=== PATIENT | female | born 1945 | race Caucasian/White ===

== ENCOUNTER 2017-01-29 22:44 | Inpatient (IN) | payer MEDICARE, OTHER ==
[2017-01-29] MEDS ORDERED: IPRATROPIUM/ALBUTEROL 0.5-2.5 MG/3 ML AMPUL NEB ONE (22:48)
[2017-01-29] MEDS ORDERED: MAGNESIUM SULFATE/D5W 100 ML IV SCH (23:00)
--- NOTE | 2017-01-29 23:09 | ER Document Report ---
ED General - General Stated Complaint: RESPIRATORY DISTRESS Notes: Patient is a 71-year-old female presents for complaint of difficulty breathing. She has a history of COPD. She quit smoking 5 months ago. She started having worsening difficulty breathing over last 4 days. Today became much worse. Her difficulty breathing was not responding to nebulizer treatments. She does not wear oxygen at home. She was 84% on room air when the paramedics arrived. She was placed on CPAP by the paramedics. She says the CPAP is helping. No recent fevers. TRAVEL OUTSIDE OF THE [place] IN LAST 30 DAYS: No - Related Data Allergies/Adverse Reactions: prednisone [Prednisone] Allergy (Intermediate, Verified 12/24/15 13:38) Past Medical History - Social History Smoking Status: Former Smoker Frequency of alcohol use: None Drug Abuse: None Family History: Reviewed & Not Pertinent - Past Medical History Cardiac Medical History: Reports: Hx Hypertension - CONTOLLED/MEDICATED Denies: Hx Heart Attack Pulmonary Medical History: Denies: Hx Asthma Neurological Medical History: Denies: Hx Cerebrovascular Accident, Hx Seizures GI Medical History: Denies: Hx Hepatitis, Hx Hiatal Hernia, Hx Ulcer Infectious Medical History: Denies: Hx Hepatitis Past Surgical History: Denies: Hx Hysterectomy, Hx Mastectomy, Hx Open Heart Surgery, Hx Pacemaker Review of Systems - Review of Systems Notes: My Normal Review Basic REVIEW OF SYSTEMS: CONSTITUTIONAL : Denies fever, chills, or sweats. Denies recent illness. EENT: Denies eye, ear, throat, or mouth pain or symptoms. Denies nasal or sinus congestion. RESPIRATORY: Difficulty breathing, cough, diffuse wheezing GASTROINTESTINAL: Denies abdominal pain. Denies nausea, vomiting, or diarrhea. Denies constipation. Last BM: GENITOURINARY: Denies difficulty urinating, painful urination, burning, frequency, or blood in urine. MUSCULOSKELETAL: Denies neck or back pain or joint pain or swelling. SKIN: Denies rash or skin lesions. NEUROLOGICAL: Denies altered mental status or loss of consciousness. Denies headache. Denies weakness or paralysis or loss of use of either side. Denies problems with gait or speech. Denies sensory or motor loss. ALL OTHER SYSTEMS REVIEWED AND NEGATIVE. Physical Exam - Vital signs Vitals: Resp Pulse Ox 24 H 96 01/30/17 01:10 01/30/17 01:10 - Notes Notes: General Appearance: Well nourished, alert, cooperative, moderate acute distress , no obvious discomfort. Vitals: reviewed, See vital signs table. Head: no swelling or tenderness to the head Eyes: PERRL, EOMI, Conjuctiva clear Mouth: No decreasd moisture Neck: Supple, no neck tenderness, No thyromegaly Lungs: Diffuse wheeze and rhonchi. No accessory muscle use, fair air exchange bilaterally. Heart: Normal rate, Regular rythm, No murmur, no rub Abdomen: Normal BS, soft, No rigidity, No abdominal tenderness, No guarding, no rebound, no abdominal masses, no organomegaly Extremities: strength 5/5 in all extremities, good pulses in all extremities, no swelling or tenderness in the extremities, no edema. Skin: warm, dry, appropriate color, no rash Neuro: speech clear, oriented x 3, normal affect, responds appropriately to questions. Course - Vital Signs Vital signs: Temp Pulse Resp BP Pulse Ox 24 H 96 01/30/17 01:10 01/30/17 01:10 - Laboratory Result Diagrams: 01/29/17 22:00 01/29/17 22:00 Laboratory results interpreted by me: 01/29/17 01/29/17 22:00 22:00 WBC 11.6 H Eosinophils % 11.1 H Absolute Eosinophils 1.3 H Sodium 136.9 L Chloride 97 L Glucose 146 H - EKG Interpretation by Me Additional EKG results interpreted by me: 01/29/17 23:10 EKG is reviewed and interpreted by me. EKG shows normal sinus rhythm with rate of [address] segment elevation or depression. No ischemic T wave inversions. AR interval, QRS duration, QTC intervals are within normal range. No old EKG available for comparison at this time. - Transfer of Care Notes: 01/30/17 01:35 Patient is continued feel improved on BiPAP however still has very tight and wheezy lung fowler. I did not give her Solu-Medrol due to her severe allergy to prednisone in the past. Prednisone calls her tongue no swelling or face is swollen causes difficulty breathing. She has received magnesium. She's received several DuoNeb treatments. She is currently receiving albuterol treatments. I spoke with the hospitalist who agrees in that the patient for further workup and treatment of her COPD exacerbation. Dictation of this chart was performed using voice recognition software; therefore, there may be some unintended grammatical errors. Discharge - Discharge Clinical Impression: COPD exacerbation Condition: Stable Disposition: ADMITTED INPATIENT Admitting Provider: Hospitalist Unit Admitted: [facility]
[2017-01-29 23:21] LABS: VENOUS BLOOD HCO3 28.1 mmol/L (20-32); VENOUS BLOOD PCO2 55.1 mmHg (35-63); VENOUS BLOOD PH 7.33 (7.30-7.42)
[2017-01-29 23:28] LABS: ABSOLUTE BASOPHILS # (AUTO) 0.1 10^3/uL (0.0-0.2); ABSOLUTE EOSINOPHILS # (AUTO) 1.3 10^3/uL (0.0-0.6); ABSOLUTE LYMPHOCYTES (AUTO) 2.2 10^3/uL (0.5-4.7); ABSOLUTE MONOCYTES (AUTO) 0.9 10^3/uL (0.1-1.4); ABSOLUTE NEUT (AUTO) 7.1 10^3/uL (1.7-8.2); EOSINOPHILS % (AUTO) 11.1 % (0-6); HEMATOCRIT 36.8 % (36.0-47.0); HEMOGLOBIN 12.5 g/dL (12.0-15.5); HGB HCT DIFFERENCE 0.7; LYMPHOCYTES % (AUTO) 19.4 % (13-45); MEAN CORPUSCULAR HEMOGLOBIN 30.6 pg (27.0-33.4); MEAN CORPUSCULAR VOLUME 90 fl (80-97); MONOCYTES % (AUTO) 7.4 % (3-13); RED BLOOD COUNT 4.09 10^6/uL (3.72-5.28); RED CELL DISTRIBUTION WIDTH 12.9 % (11.5-14.0); SEGMENTED NEUTROPHILS % (AUTO) 61.1 % (42-78); WHITE BLOOD COUNT 11.6 10^3/uL (4.0-10.5)
[2017-01-29 23:35] LABS: ANION GAP 12 (5-19); BLOOD UREA NITROGEN 14 mg/dL (7-20); CALCIUM 9.9 mg/dL (8.4-10.2); CARBON DIOXIDE 28 mmol/L (22-30); CHLORIDE 97 mmol/L (98-107); CREATININE RESULT 0.72 mg/dL (0.52-1.25); GLUCOSE 146 mg/dL (75-110); POTASSIUM 4.2 mmol/L (3.6-5.0); SODIUM 136.9 mmol/L (137-145)
[2017-01-30] MEDS ORDERED: IPRATROPIUM/ALBUTEROL 0.5-2.5 MG/3 ML AMPUL NEB ONE (00:41)
[2017-01-30] MEDS ORDERED: LORAZEPAM INJ 2 MG/1 ML VIAL IV ONE ×2 (00:55)
[2017-01-30] MEDS ORDERED: ALBUTEROL SULFATE 0.083% NEB 2.5 MG/3 ML AMPUL NEB ONE (01:34)
[2017-01-30 02:18] LABS: ADD ON TESTING BLD IN LAB ACKNOWLEDGE
[2017-01-30 02:24] LABS: VENOUS BLOOD BASE EXCESS -2.2 mmol/L; VENOUS BLOOD HCO3 24.8 mmol/L (20-32); VENOUS BLOOD PCO2 51.5 mmHg (35-63); VENOUS BLOOD PH 7.3 (7.30-7.42)
[2017-01-30 02:29] LABS: ALANINE AMINOTRANSFERASE 85 U/L (9-52); ALBUMIN 4.2 g/dL (3.5-5.0); ALKALINE PHOSPHATASE 131 U/L (38-126); ASPARTATE AMINO TRANSFERASE 45 U/L (14-36); BILIRUBIN,TOTAL 0.4 mg/dL (0.2-1.3); TOTAL PROTEIN 7.3 g/dL (6.3-8.2)
[2017-01-30] MEDS ORDERED: GUAIFENESIN SYRP 200 MG/10 ML UDC PO PRN (02:54)
[2017-01-30] MEDS ORDERED: NORMAL SALINE 1000 ML 1,000 ML IV PRN ×2 (02:54→21:30)
[2017-01-30] MEDS ORDERED: ALBUTEROL SULFATE 0.083% NEB 2.5 MG/3 ML AMPUL NEB PRN (02:54)
[2017-01-30] MEDS ORDERED: CEFTRIAXONE 1 GM/D5W RTU 1 GM/50 ML RTUPB IV SCH (03:00)
[2017-01-30] MEDS ORDERED: ACETAMINOPHEN 325 MG TABLET PO PRN (03:02)
[2017-01-30] MEDS ORDERED: AZITHROMYCIN INJ 500 MG VIAL IV PRN (03:28)
[2017-01-30 03:29] LABS: CREATINE KINASE MB 2.25 ng/mL (<4.55); TROPONIN I < 0.012 ng/mL
[2017-01-30] MEDS ORDERED: CEFTRIAXONE INJ 1000 MG VIAL IV PRN (03:29)
--- NOTE | 2017-01-30 03:34 | PDOC H&P ---
History of Present Illness Admission Date/PCP: 01/30/17 01:46 ELENA NIEVES MD Patient complains of: Difficulty breathing History of Present Illness: MICHELLE FIGUEROA is a 71 year old female with underlying nonhome O2 dependent COPD, having stopped smoking 5 months ago, along with hypertension, occasional problems with eczema, easy bruising, and mild arthritis who presents to the emergency room for evaluation of above complaint. Has had slowly worsening difficulty breathing over the last 4 days, but in particular over the last 24 hours or so. Home nebulizers had little effect. No home oxygen. 84% on room air upon EMS arrival. Placed on CPAP by paramedics , which has helped her significantly. Denies nausea vomiting, fever or chills. She is up-to-date with her flu vaccination. She and her take care of the 3-year-old granddaughter, who is currently on breathing treatments. Granddaughter attends daycare. Granddaughter does not have any chronic pulmonary problems. No hospitalization over the last 3 months, although did spend a single day in September at [facility] for breathing difficulty. No antibiotic use over the last 3 months. No history of intubation. Up-to-date with her flu vaccination. Patient has been discussed with emergency room physician who evaluated the patient. . Laboratory results are listed in [employer] and are reviewed. X-ray summary results are listed below, with full report(s) reviewed. . EKG reviewed. Social history/personal habits: . 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 No alcohol or illicit drug use. Allergies/adverse reactions are listed in [employer] and are reviewed. Prednisone actually causes significant worsening of her breathing, with facial and airway swelling. Home medications are reviewed by discussion with patient and are to be reconciled by nursing staff in [facility]. [facility] may not accurately reflect patient's true medications, dosages, and/or frequencies. Unfortunately, patient uncertain of medications/dosages/frequencies. REVIEW OF SYSTEMS: Constitutional: No fever or chills. Eyes: No vision complaints. ENT: No swallowing problems or complaints. No hearing problems or complaints. Pulmonary: See history and present illness. Cardiovascular: No current complaints, including chest pain. Gastrointestinal: No current complaints, including nausea or vomiting. Skin: Occasional problems with eczema. Hematologic: Easy bruising. Neurologic: No current complaints, including numbness or tingling. Musculoskeletal: Joint pain from arthritis. Psychiatric: No current complaints, including anxiety or depression. Endocrine: No current complaints, including polyuria. Genitourinary: No current complaints, including dysuria. PHYSICAL EXAMINATION: 5 feet 2 inches tall. 77.1 kg. BMI 31.1 kg/m. Blood pressure 120/96. 94% saturation on BiPAP 30%, 12/6. Pulse 110 and regular. Temperature not recorded on the chart. Slightly obese otherwise well-developed elderly female appearing perhaps slightly younger than her stated age. Pleasant awake alert and cooperative. Appears to feel a bit under the weather, so to speak, and perhaps slightly tired. Otherwise, pleasant awake alert and cooperative. Skin is warm and dry. No grossly obvious evidence of rash in areas of skin examined. No subcutaneous nodules palpated. ENT: Hearing grossly normal Mildly hard of hearing to normal conversation. Tongue midline on protrusion pink and slightly tacky. Exam slightly limited by BiPAP mask with attaching straps. Eyes: No scleral icterus. Pupils equal and reactive to light at 4 mm. [place] conjunctivae. Neck is supple and nontender to gentle active range of motion and palpation. Midline trachea. No palpable thyroid nodule mass enlargement or tenderness. Lymphatic: No palpable cervical or clavicular nodes. Neck and lymphatic exams limited by patient body habitus. Exam slightly limited by BiPAP mask with attaching straps. Psychiatric: Reasonable insight into acute and chronic medical issues. Oriented to time location and why here. Lungs: Auscultation reveals equal breath sounds bilaterally. No use of accessory respiratory muscles. Diffuse mild inspiratory and expiratory wheezing bilaterally. Cardiovascular: Heart regular rate and rhythm, without gallop murmur or rub. No abdominal aortic bruits. Difficult to evaluate for carotid bruits due to airway sounds from BiPAP device. No ankle or pedal edema. Faintly palpable dorsalis pedis pulses. Abdomen: soft, somewhat obese, Slightly distended nontender with positive bowel sounds. Unable to adequately evaluate abdomen for masses or organomegaly due to body habitus and distention. Extremities: Feet are warm and dry. No calf tenderness to compression. No grossly obvious visual evidence of calf swelling. Gentle manipulation of lower extremities fails to reveal any obvious evidence of injury or instability to knees hips or ankles. Neurologic: Moves upper extremities grossly normally. Patellar reflexes absent. Absent Babinski. Light touch is intact at feet. Dorsiflexion and plantarflexion of feet 5 / 5 and symmetric. Past Medical History Cardiac Medical History: Reports: Hypertension - CONTOLLED/MEDICATED Denies: Congestive Heart Failure, Coronary Artery Disease, DVT, Myocardial Infarction, Hyperlipidema, Pulmonary Embolism Pulmonary Medical History: Reports: Chronic Obstructive Pulmonary Disease (COPD) Denies: Asthma, Sleep Apnea EENT Medical History: Denies: Eyes, Ears, Throat Neurological Medical History: Denies: Hemorrhagic CVA, Ischemic CVA, Seizures Endocrine Medical History: Denies: Diabetes Mellitus Type 1, Diabetes Mellitus Type 2, Hyperthyroidism, Hypothyroidism Renal/ Medical History: Reports: None GI Medical History: Reports: Other - "Stomach trouble" could be no more specific than this. Denies: Cirrhosis, Hepatitis, Hiatal Hernia, Peptic Ulcer Disease Musculoskeltal Medical History: Reports: Arthritis Skin Medical History: Reports: Eczema Psychiatric Medical History: Denies: Alcohol Dependency, Depression, General Anxiety Disorder, Substance Abuse, Tobacco Dependency Hematology: Denies: Anemia, Sickle Cell Disease Infectious Medical History: Denies: Clostridium Difficile, Hepatitis B, Hepatitis C, Methicillin- Resistant Staph Aureus Past Surgical History Past Surgical History: Reports: Cholecystectomy, Other - Left foot surgery for Castrejon's neuroma. Cataract surgery. Social History Information Source: Patient, Emergency Med Personnel, [facility] Records Lives with: Spouse/Significant other Smoking Status: Former Smoker Frequency of Alcohol Use: None Drugs: None - Advance Directive Resuscitation Status: Full Code Surrogate healthcare decision maker:: Family History Family History: Reviewed & Not Pertinent Parental Family History Reviewed: Yes Children Family History Reviewed: Yes Sibling(s) Family History Reviewed.: Yes Medication/Allergy Home Medications: Albuterol Sulfate [Proair HFA] 2 puff IH Q4HP PRN 01/30/17 Diltiazem HCl [Cardizem] 120 mg PO Q12 01/30/17 Ipratropium/Albuterol Sulfate [Duoneb 3 ml Ampul] 3 ml NEB RTQ4 01/30/17 RX: Metoprolol Tartrate [Lopressor 50 mg Tablet] 50 mg PO Q12 01/30/17 Allergies/Adverse Reactions: prednisone [Prednisone] Allergy (Intermediate, Verified 01/30/17 20:09) Difficulty breathing Physical Exam Vital Signs: Temp Pulse Resp BP Pulse Ox 24 H 112/79 93 01/30/17 01:10 01/30/17 01:31 01/30/17 01:31 Intake & Output 01/29/17 01/30/17 01/31/17 00:59 00:59 00:59 Weight 77.111 kg Results Laboratory Results: 01/30/17 02:13 VBG pH 7.30 VBG pCO2 51.5 VBG HCO3 24.8 VBG Base Excess -2.2 Impressions: Chest X-Ray 01/29/17 22:48 IMPRESSION: No acute radiographic finding in the chest. Emphysema. Assessment & Plan - Diagnosis (1) Acute on chronic respiratory failure with hypoxia and hypercapnia Is this a current diagnosis for this admission?: YesPlan: Patient will be admitted under COPD exacerbation protocol. Incentive spirometry twice a day. Scheduled DuoNeb's. PRN albuterol nebs Antibiotics will consist of Rocephin and intravenous Zithromax.. I strongly encouraged patient to notify staff should patient feel that respiratory status is worsening. Patient is a full code. I have strongly encouraged patient not to get out of bed without notifying staff , , to avoid a fall with injury. Knee high SCDs for DVT prophylaxis, along with subcutaneous Lovenox Impression and plans were discussed with patient, who concurs. Time spent in evaluation and management of patient: 61 minutes. (2) COPD exacerbation Is this a current diagnosis for this admission?: Yes (3) Elevated LFTs Is this a current diagnosis for this admission?: YesPlan: No old labs available for comparison. Denies underlying biliary disease. Repeat chemistry. (4) HTN (hypertension) Qualifiers: Hypertension type: essential hypertension Qualified Code(s): I10 - Essential (primary) hypertension Is this a current diagnosis for this admission?: YesPlan: Resume home medications as appropriate once these have been determined and reviewed. - Inpatient Certification Based on my medical assessment, after consideration of the patient's comorbidities, presenting symptoms, or acuity I expect that the services needed warrant INPATIENT care.: Yes I certify that my determination is in accordance with my understanding of Medicare's requirements for reasonable and necessary INPATIENT services [42 CFR 412.3e].: Yes Medical Necessity: Need Close Monitoring Due to Risk of Patient Decompensation, Need For Continuous Telemetry Monitoring, Need for Nebulizer Therapy and Monitoring of Response, Need for IV Antibiotics, Risk of Complication if Not Cared For in Hospital, Risk of Diagnosis Which Will Require Inpatient Eval/Care/ Monitoring Post Hospital Care: D/C or Transfer Summary
[2017-01-30 07:25] LABS: ABSOLUTE BASOPHILS # (AUTO) 0.1 10^3/uL (0.0-0.2); ABSOLUTE EOSINOPHILS # (AUTO) 0.8 10^3/uL (0.0-0.6); ABSOLUTE LYMPHOCYTES (AUTO) 0.9 10^3/uL (0.5-4.7); ABSOLUTE MONOCYTES (AUTO) 0.7 10^3/uL (0.1-1.4); ABSOLUTE NEUT (AUTO) 9.4 10^3/uL (1.7-8.2); BASOPHILS % (AUTO) 0.8 % (0-2); EOSINOPHILS % (AUTO) 6.7 % (0-6); HEMATOCRIT 36.9 % (36.0-47.0); HEMOGLOBIN 12.5 g/dL (12.0-15.5); HGB HCT DIFFERENCE 0.6; LYMPHOCYTES % (AUTO) 7.8 % (13-45); MEAN CORPUSCULAR HEMOGLOBIN 30.4 pg (27.0-33.4); MEAN CORPUSCULAR HGB CONC 33.8 g/dL (32.0-36.0); MEAN CORPUSCULAR VOLUME 90 fl (80-97); MONOCYTES % (AUTO) 6.1 % (3-13); RED BLOOD COUNT 4.09 10^6/uL (3.72-5.28); SEGMENTED NEUTROPHILS % (AUTO) 78.6 % (42-78)
[2017-01-30] MEDS: ENOXAPARIN SODIUM INJ 40 MG/0.4 ML DISP.SYRIN SUBCUT SCH (07:28)
[2017-01-30 07:49] LABS: ALANINE AMINOTRANSFERASE 81 U/L (9-52); ALBUMIN 4.4 g/dL (3.5-5.0); ALKALINE PHOSPHATASE 124 U/L (38-126); ANION GAP 14 (5-19); ASPARTATE AMINO TRANSFERASE 42 U/L (14-36); BILIRUBIN,TOTAL 0.4 mg/dL (0.2-1.3); BLOOD UREA NITROGEN 16 mg/dL (7-20); CALCIUM 9.5 mg/dL (8.4-10.2); CARBON DIOXIDE 24 mmol/L (22-30); CHLORIDE 97 mmol/L (98-107); CREATININE RESULT 0.75 mg/dL (0.52-1.25); GLUCOSE 171 mg/dL (75-110); POTASSIUM 4.9 mmol/L (3.6-5.0); SODIUM 135.1 mmol/L (137-145); TOTAL PROTEIN 7.5 g/dL (6.3-8.2)
[2017-01-30 07:51] LABS: VENOUS BLOOD BASE EXCESS 2.9 mmol/L; VENOUS BLOOD HCO3 33.5 mmol/L (20-32); VENOUS BLOOD PH 7.22 (7.30-7.42)
[2017-01-30 07:53] LABS: VENOUS BLOOD PCO2 84.2 mmHg (35-63)
[2017-01-30] MEDS: IPRATROPIUM/ALBUTEROL 0.5-2.5 MG/3 ML AMPUL NEB SCH ×3 (08:34→20:59)
[2017-01-30] MEDS ORDERED: BUDESONIDE NEB 0.25 MG/2 ML AMPUL NEB SCH (09:45)
[2017-01-30] MEDS ORDERED: MORPHINE SULFATE 10 MG/ML INJ IV PRN (10:50)
--- NOTE | 2017-01-30 10:53 | EKG REPORT ---
SEVERITY:- NORMAL ECG - SINUS RHYTHM : Confirmed by: Rex Fritz 30-Jan-2017 10:52:33
[2017-01-30] MEDS: KETOROLAC TROMETHAMINE INJ/PF 30 MG/1 ML SDV IV PRN ×2 (11:19→17:55)
--- NOTE | 2017-01-30 12:00 | PDOC PROGRESS REPORT ---
Subjective Progress Note for:: 01/30/17 Subjective:: Reason for visit: Follow-up COPD exacerbation Hospital course: Per H&P "MICHELLE FIGUEROA is a 71 year old female with underlying nonhome O2 dependent COPD, having stopped smoking 5 months ago, along with hypertension, occasional problems with eczema, easy bruising, in mild arthritis who presents to the emergency room for evaluation of above complaint. Has had slowly worsening difficulty breathing over the last 4 days, but in particular over the last 24 hours or so. Home nebulizers had little effect. No home oxygen. 84% on room air upon EMS arrival. Placed on CPAP by paramedics, which has helped her significantly. Denies nausea vomiting, fever or chills. She is up-to-date with her flu vaccination. She and her do take care of the 3-year-old granddaughter, who is currently on breathing treatments. Granddaughter attends daycare. Granddaughter does not have any chronic pulmonary problems. No hospitalization over the last 3 months, although did spend a single day in September at [facility] for breathing difficulty. No anabiotic use over the last 3 months. No history of intubation. Up-to-date with her flu vaccination." She was admitted to a monitored bed and continued on BiPAP therapy with titration up to 16/8 pressure-support and resultant improvement in her respiratory status with decreased work of breathing. She remains alert and oriented. Subjective: She complains of pleuritic-type chest pain on deep breath that is diffuse across the lower ribs bilaterally. She continues to feel a tightness in her chest and is audibly wheezing. She denies nausea and vomiting, palpitations, headache, dizziness, numbness or tingling. ROS: per HPI plus a total of 10 systems reviewed, pertinent positives and negatives noted above, remaining systems negative. Physical Exam Vital Signs: Temp Pulse Resp BP Pulse Ox 97.6 F 119 H 20 134/92 H 998 H 01/30/17 07:36 01/30/17 08:34 01/30/17 08:34 01/30/17 07:36 01/30/17 08:34 Intake & Output 01/29/17 01/30/17 01/31/17 06:59 06:59 07:59 Intake Total 225 Output Total 0 Balance 225 Weight 79.2 kg EXAM GENERAL: NAD currently wearing BiPAP 16/8 FiO2 21%; well developed, well nourished; mild obese; alert and oriented to person, place, time, situation HEENT: normocephalic, atraumatic; no conjunctival injection, no scleral icterus ; oral mucosa moist; RESPIRATORY: no accessory muscle use, mild increased WOB, good air entry bilaterally; diffuse wheeze but no rales or rhonchi CARDIO: no JVD; RRR; no systolic murmur but difficult to auscultate with her lung sounds; mildtachycardia GI: soft; nondistended; normal bowel sounds; no hepato spleno megaly; no rebound, rigidity, guarding;' nontender VASCULAR: no abdominal bruit; no pallor; 2+ radial, DP pulse; normal capillary refill EXTREMITIES: no calf tender; no palpable cords in calf; no clubbing, cyanosis , pedal edema PSYCH: normal affect, normal mood SKIN: warm; moist; no petechiae; no telengectasias; no jaundice; no rash Results Laboratory Results: 01/30/17 06:39 01/30/17 06:39 01/30/17 01/30/17 01/30/17 06:39 06:39 07:43 WBC 12.0 H RBC 4.09 Hgb 12.5 Hct 36.9 MCV 90 MCH 30.4 MCHC 33.8 RDW 13.0 Plt Count 368 Seg Neutrophils % 78.6 H Lymphocytes % 7.8 L Monocytes % 6.1 Eosinophils % 6.7 H Basophils % 0.8 Absolute Neutrophils 9.4 H Absolute Lymphocytes 0.9 Absolute Monocytes 0.7 Absolute Eosinophils 0.8 H Absolute Basophils 0.1 VBG pH 7.22 L VBG pCO2 84.2 H* VBG HCO3 33.5 H VBG Base Excess 2.9 Sodium 135.1 L Potassium 4.9 Chloride 97 L Carbon Dioxide 24 Anion Gap 14 BUN 16 Creatinine 0.75 Est GFR ( Amer) > 60 Est GFR (Non-Af Amer) > 60 Glucose 171 H Calcium 9.5 Total Bilirubin 0.4 AST 42 H ALT 81 H Alkaline Phosphatase 124 Total Protein 7.5 Albumin 4.4 Impressions: Chest X-Ray 01/29/17 22:48 IMPRESSION: No acute radiographic finding in the chest. Emphysema. Assessment & Plan - Diagnosis (1) Acute on chronic respiratory failure with hypoxia and hypercapnia Is this a current diagnosis for this admission?: YesPlan: Continue BiPAP therapy and wean as tolerated. Continue supplemental oxygen. (2) COPD exacerbation Is this a current diagnosis for this admission?: YesPlan: Patient is an adverse reaction to systemic steroids but tolerates inhaled steroids, we will add budesonide nebs. Continue supplemental O2, nebulized therapy. (3) Elevated LFTs Is this a current diagnosis for this admission?: YesPlan: Unclear etiology, we'll continue to follow for now. 3 mild elevation. (4) HTN (hypertension) Qualifiers: Hypertension type: essential hypertension Qualified Code(s): I10 - Essential (primary) hypertension Is this a current diagnosis for this admission?: Yes - Time Time Spent with patient: 15-24 minutes Medications reviewed and adjusted accordingly: Yes Anticipated discharge: Home Within: within 72 hours
[2017-01-30 15:40] LABS: APPEARANCE,URINE CLEAR; BILIRUBIN,URINE NEGATIVE (NEGATIVE); GLUCOSE, URINE NEGATIVE (NEGATIVE); KETONES,URINE NEGATIVE (NEGATIVE); LEUKOCYTE ESTERASE,URINE NEGATIVE (NEGATIVE); NITRITE,URINE NEGATIVE (NEGATIVE); PROTEIN,URINE 100 mg/dL (NEGATIVE); URINE SPECIFIC GRAVITY 1.015; UROBILINOGEN,URINE NEGATIVE mg/dL (<2.0)
[2017-01-30] MEDS ORDERED: BUDESONIDE/FORMOTEROL 160-4.5 MCG 60 PUFF/6 GM MDI IH ONE (21:12)
[2017-01-30 21:13] LABS: VENOUS BLOOD BASE EXCESS 0.6 mmol/L; VENOUS BLOOD HCO3 27.5 mmol/L (20-32); VENOUS BLOOD PCO2 53.8 mmHg (35-63); VENOUS BLOOD PH 7.33 (7.30-7.42)
[2017-01-30] MEDS: BUDESONIDE/FORMOTEROL 160-4.5 MCG 60 PUFF/6 GM MDI IH SCH (21:30)
[2017-01-30] MEDS: CEFTRIAXONE 1 GM/D5W RTU 1 GM/50 ML RTUPB IV SCH (21:30)
[2017-01-30] MEDS: AZITHROMYCIN 500 MG in DEXTROSE 5%-WATER 250 ML IV SCH (22:44)
[2017-01-31 06:58] LABS: VENOUS BLOOD BASE EXCESS 2.1 mmol/L; VENOUS BLOOD HCO3 28.7 mmol/L (20-32); VENOUS BLOOD PCO2 53.5 mmHg (35-63); VENOUS BLOOD PH 7.35 (7.30-7.42)
[2017-01-31] MEDS: IPRATROPIUM/ALBUTEROL 0.5-2.5 MG/3 ML AMPUL NEB SCH (08:25)
[2017-01-31] MEDS: BUDESONIDE/FORMOTEROL 160-4.5 MCG 60 PUFF/6 GM MDI IH SCH ×2 (09:11→22:35)
[2017-01-31] MEDS: ENOXAPARIN SODIUM INJ 40 MG/0.4 ML DISP.SYRIN SUBCUT SCH (09:13)
[2017-01-31] MEDS ORDERED: (PENDING PHARMACY ID) (Diltiazem Hcl [Cardizem] 120 MG) PO SCH (10:00)
[2017-01-31] MEDS ORDERED: ALBUTEROL SULFATE 0.083% NEB 2.5 MG/3 ML AMPUL NEB PRN (11:45)
[2017-01-31] MEDS ORDERED: MORPHINE SULFATE 10 MG/ML INJ IV PRN (11:46)
[2017-01-31] MEDS ORDERED: METOPROLOL TARTRATE 50 MG TABLET PO ONE (12:00)
[2017-01-31] MEDS ORDERED: DILTIAZEM HCL 120 MG CAP.SR.24H PO ONE (12:00)
--- NOTE | 2017-01-31 12:07 | PDOC PROGRESS REPORT ---
Subjective Progress Note for:: 01/31/17 Subjective:: Reason for visit: Follow-up COPD exacerbation Hospital course: Per H&P "MICHELLE FIGUEROA is a 71 year old female with underlying nonhome O2 dependent COPD, having stopped smoking 5 months ago, along with hypertension, occasional problems with eczema, easy bruising, in mild arthritis who presents to the emergency room for evaluation of above complaint. Has had slowly worsening difficulty breathing over the last 4 days, but in particular over the last 24 hours or so. Home nebulizers had little effect. No home oxygen. 84% on room air upon EMS arrival. Placed on CPAP by paramedics, which has helped her significantly. Denies nausea vomiting, fever or chills. She is up-to-date with her flu vaccination. She and her do take care of the 3-year-old granddaughter, who is currently on breathing treatments. Granddaughter attends daycare. Granddaughter does not have any chronic pulmonary problems. No hospitalization over the last 3 months, although did spend a single day in September at [facility] for breathing difficulty. No anabiotic use over the last 3 months. No history of intubation. Up-to-date with her flu vaccination." She was admitted to a monitored bed and continued on BiPAP therapy with titration up to 16/8 pressure-support and resultant improvement in her respiratory status with decreased work of breathing but only while on BiPAP otherwise she quickly fatigues. She remains alert and oriented. Subjective: She complains of pleuritic-type chest pain on deep breath that is diffuse across the lower ribs bilaterally but seems to localize to the Rt lower ribs. She continues to feel a tightness in her chest "like I can't get enough air in!" and is audibly wheezing. She denies nausea and vomiting, palpitations , headache, dizziness, numbness or tingling. she reports taking an oral steroid in the past that started with a "d" and had no reaction; also takes cortisone shot into joints without reaction. ROS: per HPI plus a total of 10 systems reviewed, pertinent positives and negatives noted above, remaining systems negative. Physical Exam Vital Signs: Temp Pulse Resp BP Pulse Ox 97.7 F 95 18 131/83 H 99 01/31/17 07:38 01/31/17 08:25 01/31/17 08:25 01/31/17 07:38 01/31/17 08:25 Intake & Output 01/30/17 01/31/17 02/01/17 05:59 06:59 06:59 Intake Total Output Total Balance Weight EXAM GENERAL: NAD currently wearing BiPAP 07/07; well developed, well nourished; mild obese; alert and oriented to person, place, time, situation HEENT: normocephalic, atraumatic; no conjunctival injection, no scleral icterus ; oral mucosa moist; RESPIRATORY: no accessory muscle use, mild increased WOB, poor air entry bilaterally with tight bronchospasm indicated by diffuse wheeze and little air movement, opening squeaks and pops diffusely CARDIO: no JVD; no systolic murmur ; mild tachycardia GI: soft; nondistended; normal bowel sounds; no hepato spleno megaly; no rebound, rigidity, guarding;' nontender VASCULAR: no abdominal bruit; no pallor; 2+ radial, DP pulse; normal capillary refill EXTREMITIES: no calf tender; no palpable cords in calf; no clubbing, cyanosis , pedal edema PSYCH: normal affect, normal mood SKIN: warm; moist; no petechiae; no telengectasias; no jaundice; no rash Results Laboratory Results: 01/30/17 01/30/17 01/31/17 15:08 20:40 06:49 VBG pH 7.33 7.35 VBG pCO2 53.8 53.5 VBG HCO3 27.5 28.7 VBG Base Excess 0.6 2.1 Urine Color YELLOW Urine Appearance CLEAR Urine pH 5.0 Ur Specific Gilbert 1.015 Urine Protein 100 H Urine Glucose (UA) NEGATIVE Urine Ketones NEGATIVE Urine Blood NEGATIVE Urine Nitrite NEGATIVE Ur Leukocyte Esterase NEGATIVE Urine WBC (Auto) 1 Urine RBC (Auto) 1 Assessment & Plan - Diagnosis (1) Acute on chronic respiratory failure with hypoxia and hypercapnia Is this a current diagnosis for this admission?: YesPlan: severe and no better. will make following changes: d/c duonebs and add spiriva ; schedule albuterol nebs q6 with breakthrough nebs q3 prn; IV mag sulfate 3gms ; trial of IV decadron and monitor for reaction; use morphine for bronchial smooth muscle relaxation. otherwise Continue BiPAP therapy and wean as tolerated. Continue supplemental oxygen. (2) COPD exacerbation Is this a current diagnosis for this admission?: YesPlan: continue budesonide nebs. Continue supplemental O2, nebulized therapy as above. (3) Elevated LFTs Is this a current diagnosis for this admission?: YesPlan: Unclear etiology, we'll continue to follow for now. (4) HTN (hypertension) Qualifiers: Hypertension type: essential hypertension Qualified Code(s): I10 - Essential (primary) hypertension Is this a current diagnosis for this admission?: YesPlan: resume home regimen (5) Chest wall pain Is this a current diagnosis for this admission?: YesPlan: possible pleurisy, PE, fractured rib, effusion, etc - will ck CTA chest - Time Time Spent with patient: 35 or more minutes Medications reviewed and adjusted accordingly: Yes
[2017-01-31] MEDS ORDERED: DEXAMETHASONE SOD PHOS INJ 10 MG/1 ML VIAL IV ONE (13:00)
[2017-01-31] MEDS: MAGNESIUM SULFATE/D5W 1 GM/100 ML RTUPB IV SCH ×3 (13:30→16:47)
[2017-01-31] MEDS ORDERED: TIOTROPIUM BROMIDE DPI 5 CAP/KIT (18 MCG/CAP) IH SCH (14:00)
[2017-01-31] MEDS: ALBUTEROL SULFATE 0.083% NEB 2.5 MG/3 ML AMPUL NEB SCH ×2 (14:36→20:26)
[2017-01-31] MEDS ORDERED: ASPIRIN 81 MG TABLET, CHEWABLE PO ONE (16:00)
[2017-01-31] MEDS ORDERED: NITROGLYCERIN 5 MG (0.2 MG/HR) PATCH.TD24 TD ONE (17:18)
[2017-01-31] MEDS: ENOXAPARIN SODIUM INJ 80 MG/0.8 ML DISP.SYRIN SUBCUT SCH (17:21)
[2017-01-31] MEDS ORDERED: ATORVASTATIN CALCIUM 80 MG TABLET PO ONE (18:44)
--- NOTE | 2017-01-31 18:53 | PDOC TRANSFER SUMMARY ---
General Admission Date/PCP: 01/30/17 02:54 ELENA NIEVES MD Transfer Date: 01/31/17 Accepting Facility: [facility] Accepting Physician: dr lima, accepting hospitalist Resuscitation Status: Full Code - Transfer Diagnosis (1) NSTEMI (non-ST elevated myocardial infarction) Is this a current diagnosis for this admission?: YesDiagnosis Summary: Patient is not having active cardiac chest pain, she is having chest wall pain from coughing and breathlessness on presentation is completely reproducible under her right breast. Her initial EKG and troponin were both normal however today she was noted to have T-wave inversions on monitoring and a stat EKG shows T-wave inversions in the inferior and lateral leads and now her troponin is positive at 1.7. Cardiology was consulted and will continue to help manage while she is here. However she is at risk for an evolving infarct as I believe the COPD exacerbation as her stress test and demonstrates heretofore unknown coronary artery disease. She will be placed empirically on high-dose statin, full dose Lovenox, aspirin 324 mg daily, transdermal nitroglycerin and is already on a beta feliberto and calcium channel feliberto at home. (2) Acute on chronic respiratory failure with hypoxia and hypercapnia Is this a current diagnosis for this admission?: YesDiagnosis Summary: Her hypoxia has been mild since admission with an FiO2 requirement never greater than 25%, however her hypercapnia quickly becomes disabling leading to tachypnea and respiratory fatigue further exacerbating her respiratory status requiring frequent BiPAP intervention. She was started on Decadron today and has tolerated that dose without complication in spite of an intolerance to prednisone. She has been on inhaled budesonide, albuterol nebulizers, Spiriva with little improvement since admission. She'll be transported on BiPAP. (3) COPD exacerbation Is this a current diagnosis for this admission?: YesDiagnosis Summary: As noted above. She is also on empiric azithromycin and Rocephin due to productive cough at presentation and presumed bacterial bronchitis. (4) Elevated LFTs Is this a current diagnosis for this admission?: YesDiagnosis Summary: Unclear etiology. Very mild elevation of her AST and ALT. (5) HTN (hypertension) Is this a current diagnosis for this admission?: Yes (6) Chest wall pain Is this a current diagnosis for this admission?: YesDiagnosis Summary: She has right-sided chest wall pain probably musculoskeletal from paroxysms of cough on the day prior to her presentation and persistent increased work of breathing since her arrival. Chest x-ray does not show an obvious rib fracture. Her pain remains completely reproducible on exam and resides under her right breast in the anterior axillary line. - Transfer Medications Home Medications: Albuterol Sulfate [Proair HFA] 2 puff IH Q4HP PRN 01/30/17 Diltiazem HCl [Cardizem] 120 mg PO Q12 01/30/17 Ipratropium/Albuterol Sulfate [Duoneb 3 ml Ampul] 3 ml NEB RTQ4 01/30/17 Metoprolol Tartrate [Lopressor 50 mg Tablet] 50 mg PO Q12 01/30/17 Transfer Medications: Current Medications Acetaminophen (Tylenol 325 Mg Tablet) 650 mg PO Q8HP PRN PRN Reason: FOR PAIN OR TEMP Stop: 03/01/17 03:01 Last Admin: 01/30/17 08:00 Dose: 650 mg Albuterol (Ventolin 0.083% Neb 2.5 Mg/3 Ml Ampul) 2.5 mg NEB RTQ3HP PRN PRN Reason: SHORTNESS OF BREATH Stop: 03/02/17 11:43 Albuterol (Ventolin 0.083% Neb 2.5 Mg/3 Ml Ampul) 2.5 mg NEB [id number] LEIGH Stop: 03/02/17 13:59 Last Admin: 01/31/17 14:36 Dose: 2.5 mg Budesonide/Formoterol Fumarate (Symbicort Hfa 160-4.5 Mcg Inhaler 6 Gm) 2 puff IH Q12 LEIGH Stop: 03/01/17 21:59 Last Admin: 01/31/17 09:11 Dose: 2 puff Diltiazem HCl (Cardizem Cd 120 Mg Capsule) 120 mg PO Q12 LEIGH Stop: 03/02/17 21:59 Enoxaparin Sodium (Lovenox Inj 80 Mg/0.8 Ml Disp.Syrin) 80 mg SUBCUT Q12A LEIGH Stop: 03/02/17 17:59 Last Admin: 01/31/17 17:21 Dose: 80 mg Guaifenesin (Robitussin Syrup 200 Mg/10 Ml Ud Cup) 200 mg PO Q4HP PRN PRN Reason: COUGH Stop: 03/01/17 02:53 Last Admin: 01/30/17 08:00 Dose: 200 mg Azithromycin 500 mg/ Dextrose 250 mls @ 250 mls/hr IV QHS [facility] Stop: 02/06/17 03:59 Last Admin: 01/30/17 22:44 Dose: 500 mg Ceftriaxone Sodium/Dextrose (Rocephin Rtu 1 Gm/D5w 50 Ml Premix) 1 gm in 50 mls @ 100 mls/hr IV QHS [facility] Stop: 02/06/17 03:59 Last Admin: 01/30/17 21:30 Dose: 50 ml Metoprolol Tartrate (Lopressor 50 Mg Tablet) 50 mg PO Q12 [facility] Stop: 03/02/17 21:59 Morphine Sulfate (Morphine 10 Mg/Ml Inj) 1 mg IV Q4HP PRN PRN Reason: SHORTNESS OF BREATH Stop: 02/06/17 10:49 Last Admin: 01/31/17 12:38 Dose: 1 mg Sodium Chloride (Saline Flush 2.5 Ml Monoject Prefil Syrin) 2.5 ml IV Q8 [facility] Stop: 03/01/17 05:59 Last Admin: 01/31/17 13:34 Dose: 2.5 ml Tiotropium Rousseau (Spiriva Handihaler 5 Cap/Kit (18 Mcg/Cap)) 1 cap IH DAILY@ 1400 [facility] Stop: 03/02/17 13:59 Last Admin: 01/31/17 16:40 Dose: 1 cap - Allergies Allergies/Adverse Reactions: prednisone [Prednisone] Allergy (Intermediate, Verified 01/30/17 20:09) Difficulty breathing - Diet/Activity Discharge Diet: Other (Comments) - NPO in event heart cath needed tonight Hospital Course Hospital Course: Reason for visit: Follow-up COPD exacerbation Hospital course: Per H&P "MICHELLE FIGUEROA is a 71 year old female with underlying nonhome O2 dependent COPD, having stopped smoking 5 months ago, along with hypertension, occasional problems with eczema, easy bruising, in mild arthritis who presents to the emergency room for evaluation of above complaint. Has had slowly worsening difficulty breathing over the last 4 days, but in particular over the last 24 hours or so. Home nebulizers had little effect. No home oxygen. 84% on room air upon EMS arrival. Placed on CPAP by paramedics, which has helped her significantly. Denies nausea vomiting, fever or chills. She is up-to-date with her flu vaccination. She and her do take care of the 3-year-old granddaughter, who is currently on breathing treatments. Granddaughter attends daycare. Granddaughter does not have any chronic pulmonary problems. No hospitalization over the last 3 months, although did spend a single day in September at [facility] for breathing difficulty. No anabiotic use over the last 3 months. No history of intubation. Up-to-date with her flu vaccination." She was admitted to a monitored bed and continued on BiPAP therapy with titration up to 16/8 pressure-support and resultant improvement in her respiratory status with decreased work of breathing but only while on BiPAP otherwise she quickly fatigues. She remains alert and oriented. Subjective: She complains of pleuritic-type chest pain on deep breath that is diffuse across the lower ribs bilaterally but seems to localize to the Rt lower ribs. She continues to feel a tightness in her chest "like I can't get enough air in!" and is audibly wheezing. She denies nausea and vomiting, palpitations , headache, dizziness, numbness or tingling. she reports taking an oral steroid in the past that started with a "d" and had no reaction; also takes cortisone shot into joints without reaction. ADDENDUM: Nursing reports patient was unable to tolerate the CT angiogram of the chest because she could not lie flat long enough. She did not receive IV contrast. Nursing also called report rhythm change on telemetry monitoring with T-wave inversions noted in lead 2. The patient complained of right-sided chest pain when I evaluated her earlier this morning but was reproducible on exam. She does describes persistent pain in that area, nonradiating, sharp, stabbing worse with deep inspiration and cough or palpation and associated with worsening shortness of breath. She denies arm pain, jaw pain, nausea, vomiting , headache, numbness and tingling, dizziness. Stat EKG shows diffuse T-wave inversions new since admission sparing only the inferior leads and most pronounced in V3 through 6. Assessment: Abnormal EKG Plan: Unclear etiology, given the patient's pain and description of her symptoms we'll check a stat portable chest x-ray to rule out spontaneous pneumothorax since she has been BiPAP dependent since her arrival. We'll send stat cardiac enzymes. Check a stat d-dimer and Empirically place her on full dose Lovenox which will cover both acute coronary syndrome and possible thromboembolic disease. Administer 324 mg of aspirin. We'll check lipid panel in the morning and consider high-dose statin. Consult Dr. Lee cardiology for his recommendations. Continue home beta feliberto and add transdermal nitroglycerin. Physical Exam Vital Signs: Temp Pulse Resp BP Pulse Ox 97.7 F 89 16 124/92 H 100 01/31/17 15:59 01/31/17 15:59 01/31/17 16:00 01/31/17 15:59 01/31/17 15:59 Intake & Output 01/30/17 01/31/17 02/01/17 05:59 06:59 06:59 Intake Total 300 Output Total 0 Balance 300 Weight EXAM GENERAL: NAD currently wearing BiPAP 07/07; well developed, well nourished; mild obese; alert and oriented to person, place, time, situation HEENT: normocephalic, atraumatic; no conjunctival injection, no scleral icterus ; oral mucosa moist; RESPIRATORY: no accessory muscle use, mild increased WOB, poor air entry bilaterally with tight bronchospasm indicated by diffuse wheeze and little air movement, opening squeaks and pops diffusely CARDIO: no JVD; no systolic murmur ; mild tachycardia; chest wall pain to palpation under the right breast in the anterior axillary line GI: soft; nondistended; normal bowel sounds; no hepato spleno megaly; no rebound, rigidity, guarding;' nontender VASCULAR: no abdominal bruit; no pallor; 2+ radial, DP pulse; normal capillary refill EXTREMITIES: no calf tender; no palpable cords in calf; no clubbing, cyanosis , pedal edema PSYCH: normal affect, normal mood SKIN: warm; moist; no petechiae; no telengectasias; no jaundice; no rash Results Laboratory Results: 01/30/17 06:39 01/30/17 06:39 01/30/17 01/31/17 20:40 06:49 VBG pH 7.33 7.35 VBG pCO2 53.8 53.5 VBG HCO3 27.5 28.7 VBG Base Excess 0.6 2.1 01/31/17 16:29 Troponin I 1.700 Impressions: Chest X-Ray 01/31/17 16:00 IMPRESSION: COPD. NO ACUTE RADIOGRAPHIC FINDING IN THE CHEST. Plan Discharge Plan: The patient needs transfer to a tertiary care center for invasive cardiac evaluation. I have spoken with Dr. Keane cardiology who referred me to Dr. Lima accepting hospitalist at [facility]. I have also spoken with Dr. Reed accepting hospitalist at [facility] in [place]. Neither facility has a bed available at this time but both placed her on a waiting list. She'll be transferred to the first available bed. Time Spent: Greater than 30 Minutes - I discussed this with the patient and her they're both in agreement with transfer.
--- NOTE | 2017-01-31 20:19 | EKG REPORT ---
SEVERITY:- ABNORMAL ECG - SINUS RHYTHM ABNORMAL T, CONSIDER ISCHEMIA, ANT-LAT LEADS BORDERLINE PROLONGED QT INTERVAL : Confirmed by: Rex Fritz 31-Jan-2017 20:18:29
[2017-01-31] MEDS: DILTIAZEM HCL 120 MG CAP.SR.24H PO SCH (22:34)
[2017-01-31] MEDS: METOPROLOL TARTRATE 50 MG TABLET PO SCH (22:34)
[2017-01-31] MEDS: CEFTRIAXONE 1 GM/D5W RTU 1 GM/50 ML RTUPB IV SCH (22:35)
[2017-01-31] MEDS: AZITHROMYCIN 500 MG in DEXTROSE 5%-WATER 250 ML IV SCH (23:12)
[2017-02-01 04:24] LABS: HEMATOCRIT 38.4 % (36.0-47.0); HEMOGLOBIN 12.6 g/dL (12.0-15.5); HGB HCT DIFFERENCE -0.6; MEAN CORPUSCULAR HEMOGLOBIN 29.5 pg (27.0-33.4); MEAN CORPUSCULAR HGB CONC 32.8 g/dL (32.0-36.0); MEAN CORPUSCULAR VOLUME 90 fl (80-97); RED BLOOD COUNT 4.28 10^6/uL (3.72-5.28); RED CELL DISTRIBUTION WIDTH 13.4 % (11.5-14.0); WHITE BLOOD COUNT 9.2 10^3/uL (4.0-10.5)
[2017-02-01] MEDS: ENOXAPARIN SODIUM INJ 80 MG/0.8 ML DISP.SYRIN SUBCUT SCH (06:09)
[2017-02-01] MEDS: ALBUTEROL SULFATE 0.083% NEB 2.5 MG/3 ML AMPUL NEB SCH (07:51)
[2017-02-01 07:59] LABS: ALANINE AMINOTRANSFERASE 54 U/L (9-52); ALKALINE PHOSPHATASE 113 U/L (38-126); ANION GAP 11 (5-19); ASPARTATE AMINO TRANSFERASE 34 U/L (14-36); BILIRUBIN,TOTAL 0.5 mg/dL (0.2-1.3); BLOOD UREA NITROGEN 20 mg/dL (7-20); CALCIUM 9.5 mg/dL (8.4-10.2); CARBON DIOXIDE 25 mmol/L (22-30); CHLORIDE 96 mmol/L (98-107); CHOLESTEROL 173.62 mg/dL (0-200); CREATININE RESULT 0.56 mg/dL (0.52-1.25); Direct HDL 60 mg/dL (>40); GLUCOSE 129 mg/dL (75-110); MAGNESIUM 2.3 mg/dL (1.6-2.3); POTASSIUM 4.7 mmol/L (3.6-5.0); TOTAL PROTEIN 6.9 g/dL (6.3-8.2); TRIGLYCERIDES 101 mg/dL (<150)
[2017-02-01 08:10] LABS: DIRECT LDL 91 mg/dL (<100)
[2017-02-01 08:15] VITALS: BP 106/72
[2017-02-01] MEDS: METOPROLOL TARTRATE 50 MG TABLET PO SCH (08:56)
[2017-02-01] MEDS: DILTIAZEM HCL 120 MG CAP.SR.24H PO SCH (08:57)
[2017-02-01] MEDS: BUDESONIDE/FORMOTEROL 160-4.5 MCG 60 PUFF/6 GM MDI IH SCH (08:58)
[2017-02-01] MEDS ORDERED: ASPIRIN 325 MG TABLET, ENT COATED PO SCH (10:00)
[2017-02-01] MEDS ORDERED: DEXAMETHASONE SOD PHOS INJ 10 MG/1 ML VIAL IV SCH (12:00)
--- NOTE | 2017-02-01 13:56 | EKG REPORT ---
SEVERITY:- ABNORMAL ECG - SINUS RHYTHM PROBABLE LEFT ATRIAL ABNORMALITY ABNORMAL T, CONSIDER ISCHEMIA, DIFFUSE LEADS BORDERLINE PROLONGED QT INTERVAL : Confirmed by: Rex Fritz 01-Feb-2017 13:56:43
--- NOTE | 2017-02-01 16:46 | Progress Note ---
Provider Note Provider Note: A bed has opened up at [facility] with transport on the way. she has remained hemodynamically stable through the night and is no greater risk for transfer at this time. she remains largely BiPAP dependent due to significant fatigue and rapid accumulation of CO2 when off so i recommend continuing for transport. Her troponins are flat but still >1 and no further ecg changes than the TWI previously noted. EXAM GENERAL: NAD currently wearing BiPAP 16/8; well developed, well nourished; mild obese; alert and oriented to person, place, time, situation HEENT: normocephalic, atraumatic; no conjunctival injection, no scleral icterus ; oral mucosa moist; RESPIRATORY: no accessory muscle use, mild increased WOB, poor air entry bilaterally with tight bronchospasm indicated by diffuse wheeze and little air movement, opening squeaks and pops diffusely CARDIO: no JVD; no systolic murmur ; mild tachycardia; chest wall pain to palpation under the right breast in the anterior axillary line GI: soft; nondistended; normal bowel sounds; no hepato spleno megaly; no rebound, rigidity, guarding;' nontender VASCULAR: no abdominal bruit; no pallor; 2+ radial, DP pulse; normal capillary refill EXTREMITIES: no calf tender; no palpable cords in calf; no clubbing, cyanosis , pedal edema PSYCH: normal affect, normal mood SKIN: warm; moist; no petechiae; no telengectasias; no jaundice; no rash
[2017-02-01] MEDS ORDERED: ATORVASTATIN CALCIUM 80 MG TABLET PO SCH (22:00)
== END 2017-02-01 10:40 | disposition short-term general hospital (02) | DRG 280 ==
LOC: ER 22:44 → UNDOADMIN 01-30 01:46 → EH 01-30 01:46 → 3N 01-30 05:08
PROVIDERS: ADMIT Family Medicine; ATTEND Family Medicine
PROC: 5A09457 Assistance with Respiratory Ventilation, 24-96 Consecutive Hours, Continuous Positive Airway Pressure (ICD-10-PCS; principal; 2017-01-30)
DX: I21.4 Non-ST elevation (NSTEMI) myocardial infarction (principal); J96.21 Acute and chronic respiratory failure with hypoxia; J96.22 Acute and chronic respiratory failure with hypercapnia; J44.1 Chronic obstructive pulmonary disease with (acute) exacerbation; I10 Essential (primary) hypertension; L30.9 Dermatitis, unspecified; E66.9 Obesity, unspecified; M19.90 Unspecified osteoarthritis, unspecified site; R94.5 Abnormal results of liver function studies; R07.89 Other chest pain; Z53.8 Procedure and treatment not carried out for other reasons; Z90.49 Acquired absence of other specified parts of digestive tract; Z88.8 Allergy status to other drugs, medicaments and biological substances; Z87.891 Personal history of nicotine dependence; Z68.31 Body mass index [BMI] 31.0-31.9, adult
CPT/HCPCS: 36415; 71010; 80048; 80053; 80061; 80076; 81001; 82550; 82553; 82803; 83735; 84484; 85025; 85027; 85379; 87040; 87804; 93005; 93010; 93880; 93970; 94640; 94660; 96365; 96375; 99285; J0456; J0696; J1100; J1650; J1885; J2060; J2270; J3475; J3490; J7060; J7620

== ENCOUNTER → 2020-08-27 | Outpatient (CLI) | payer MEDICARE, OTHER ==
[2020-08-27 12:45] LABS: ABSOLUTE BASOPHILS # (AUTO) 0.1 10^3/uL (0.0-0.2); ABSOLUTE EOSINOPHILS # (AUTO) 0.6 10^3/uL (0.0-0.6); ABSOLUTE MONOCYTES (AUTO) 0.5 10^3/uL (0.1-1.4); ABSOLUTE NEUT (AUTO) 5.1 10^3/uL (1.7-8.2); BASOPHILS % (AUTO) 1.4 % (0-2); EOSINOPHILS % (AUTO) 8.6 % (0-6); HEMATOCRIT 31.4 % (36.0-47.0); HEMOGLOBIN 10.2 g/dL (12.0-15.5); LYMPHOCYTES % (AUTO) 13.7 % (13-45); MEAN CORPUSCULAR HEMOGLOBIN 28.5 pg (27.0-33.4); MEAN CORPUSCULAR HGB CONC 32.6 g/dL (32.0-36.0); MEAN CORPUSCULAR VOLUME 87 fl (80-97); MONOCYTES % (AUTO) 6.9 % (3-13); PLATELET COUNT 409 10^3/uL (150-450); RED CELL DISTRIBUTION WIDTH 18.5 % (11.5-14.0); SEGMENTED NEUTROPHILS % (AUTO) 69.4 % (42-78); TOTAL CELLS COUNTED % (AUTO) 100 %; WHITE BLOOD COUNT 7.4 10^3/uL (4.0-10.5)
[2020-08-27 13:05] LABS: ALBUMIN 4.5 g/dL (3.5-5.0); ALKALINE PHOSPHATASE 140 U/L (38-126); ANION GAP 12 (5-19); ASPARTATE AMINO TRANSFERASE 22 U/L (14-36); BILIRUBIN,DIRECT 0.3 mg/dL (0.0-0.4); BILIRUBIN,TOTAL 0.4 mg/dL (0.2-1.3); BLOOD UREA NITROGEN 33 mg/dL (7-20); C-REACTIVE PROTEIN 20.3 mg/L (<10.0); CALCIUM 9.8 mg/dL (8.4-10.2); CARBON DIOXIDE 24 mmol/L (22-30); CHLORIDE 102 mmol/L (98-107); GLUCOSE 136 mg/dL (75-110); POTASSIUM 5.1 mmol/L (3.6-5.0); TOTAL PROTEIN 7.4 g/dL (6.3-8.2)
[2020-08-27 13:15] LABS: ERYTHROCYTE SEDIMENTATION RATE 45 mm/hr (0-30)
== END ==
LOC: OD 11:06
PROVIDERS: ATTEND Nurse Practitioner Family
DX: E11.622 Type 2 diabetes mellitus with other skin ulcer (principal); L97.211 Non-pressure chronic ulcer of right calf limited to breakdown of skin
CPT/HCPCS: 36415; 80053; 83036; 85025; 85652; 86140

== ENCOUNTER → 2020-09-10 | Outpatient (CLI) | payer MEDICARE, OTHER ==
--- NOTE | 2020-09-10 15:38 | RADIOLOGY REPORT (SQ) ---
EXAM DESCRIPTION: ARTERIAL LOWER EXTREM BILAT IMAGES COMPLETED DATE/TIME: 09/10/2020 2:48 pm REASON FOR STUDY: RT CALF ULCER L97.211 NON-PRS CHRONIC ULCER OF RIGHT CALF LIMITED TO BRKDW COMPARISON: None. TECHNIQUE: Dynamic and static langston scale and color images acquired of the lower extremity arteries. Additional selected spectral images recorded. ABIs recorded. LIMITATIONS: None. FINDINGS: RIGHT LEG: ABIS: Normal, over 1.0. INFLOW ARTERIES: Normal, no obstruction evident. FEMORAL ARTERIES:Common femoral artery is patent without high-grade stenosis. Profunda origin demons trates multiphasic waveform and velocity of 223 cm/sec suggestive of 50% stenosis. SFA demonstrates multiphasic waveform without high-grade stenosis. Scattered multifocal plaque.. No aneurysm. POPLITEAL ARTERY:Multiphasic waveforms. Normal, no velocity elevation to suggest focal stenosis. Norm al color Doppler evaluation. No aneurysm. PATENT TIBIOPERONEAL TRUNK AND RUNOFF: Peroneal not imaged. Anterior and posterior tibial without hi gh-grade stenosis. Biphasic waveforms throughout. TBI: Not performed. OTHER: No other significant finding. LEFT LEG: ABIS: 1.4- 1.5, likely falsely elevated secondary to vessel calcifications. INFLOW ARTERIES: Triphasic inflow. FEMORAL ARTERIES:Common femoral artery demonstrates triphasic waveforms. There is elevated velocity of 311 cm/sec suggestive of 50 - 74% stenosis. Profunda origin is patent. SFA demonstrates multifoc al plaque without focal stenosis. Multiphasic waveforms throughout. No aneurysm. POPLITEAL ARTERY:Multiphasic waveforms. Normal, no velocity elevation to suggest focal stenosis. Norm al color Doppler evaluation. No aneurysm. PATENT TIBIOPERONEAL TRUNK AND RUNOFF: Peroneal not imaged. Anterior and posterior tibial without hi gh-grade stenosis. Retrograde flow within the distal dorsalis pedis. TBI: Not performed. OTHER: No other significant finding. IMPRESSION: 1. Bilateral normal ABIs as above. Findings possibly falsely elevated secondary to ves ignacio calcifications. 2. Right lower extremity with multiphasic inflow. Approximately 50% stenosis within the profunda or igin. 3. Left lower extremity with multiphasic inflow. Approximately 50 to 74% stenosis within the common femoral artery with velocity of 311 cm/sec. COMMENT: [facility] NORMAL: Greater than 1.0 MINIMAL DISEASE: 0.9 to 1.0 CLAUDICATION: 0.5 to 0.9 SEVERE ARTERIAL DISEASE: Less than 0.5 [facility] NORMAL: Greater than 1.0 (1.2 If Heavy Calcifications) NORMAL TO MILD ISCHEMIA: 0.8 to 1.0 MODERATE ISCHEMIA: 0.4 to 0.8 SEVERE ISCHEMIA: Less than 0.4 TECHNICAL DOCUMENTATION: JOB ID: [id number] 2010 [id number]- All Rights Reserved Reading location - IP/workstation name: [email or web address]
--- NOTE | 2020-09-10 22:28 | RADIOLOGY REPORT (SQ) ---
Bilateral lower extremity venous Doppler ultrasound: 09/10/2020 9:20 PM CDT TECHNIQUE: Multiple grayscale and spectral Doppler images of the bilateral lower extremity veins were obtained. HISTORY: 75-year-old patient with bilateral lower extremity pain and swelling. FINDINGS: Normal compressibility and color Doppler images of the bilateral common femoral, femoral, popliteal veins were obtained. The visualized soft tissues appear grossly unremarkable. There are no findings to suggest deep vein thrombosis. No perforators were seen. No significant venous reflux was noted. The right greater saphenous vein measures 5 to 6 mm proximally, 2 to 3 mm distally. The left greater saphenous vein measures 7 to 8 mm proximally, and 2 to 3 mm at the mid to distal portions. IMPRESSION: There are no findings to suggest deep vein thrombosis within the bilateral lower extremities.
== END ==
LOC: SP 08:38
PROVIDERS: ATTEND Nurse Practitioner Family
DX: L97.211 Non-pressure chronic ulcer of right calf limited to breakdown of skin (principal)
CPT/HCPCS: 93922; 93925; 93970